=== PATIENT | female | born 1975 | race Caucasian/White ===

== ENCOUNTER 2019-10-26 17:15 | Emergency (ER) | payer OTHER ==
[2019-10-26] MEDS ORDERED: fentaNYL 100 MCG/2 ML SDV ONE (17:35)
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
[2019-10-26 17:51] LABS: CHLORIDE,CL 102 mmol/L (98-107); SODIUM,NA 139 mmol/L (136-145)
[2019-10-26 17:56] LABS: ANION GAP 18.1 mmol/L (10-20)
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
[2019-10-26] MEDS ORDERED: fentaNYL 100 MCG/2 ML SDV IVPUSH PRN (18:13)
== END 2019-10-26 18:19 | disposition short-term general hospital (02) ==
LOC: VM.ED 17:15
DX: S00.03XA Contusion of scalp, initial encounter (principal); S30.811A Abrasion of abdominal wall, initial encounter; G83.10 Monoplegia of lower limb affecting unspecified side; M25.511 Pain in right shoulder; M25.512 Pain in left shoulder; V29.9XXA Motorcycle rider (driver) (passenger) injured in unspecified traffic accident, initial encounter
CPT/HCPCS: 71045; 80053; 85025; 85610; 96374; 99283; 99285-25; J3010